=== PATIENT | female | born 1965 | race African-American/Black ===

== ENCOUNTER 2021-04-08 14:38 | Inpatient (IN) | payer BC, SELFPAY ==
[2021-04-08] VITALS (15 sets, daily range): BP systolic 108–151; BP diastolic 58–89; PULSE 70–91; RESP 16–26; TEMP 36.2–36.9; O2SAT 99–100; BMI 24.2
--- NOTE | 2021-04-08 15:35 | PM.IMHP ---
H&P: HPI History of Present Illness Date/Time: 04/08/21 15:35 Chief Complaint: chest pain Narrative: this is a 56-year-old woman I am seeing in the emergency room in the setting of acute inferior ST-elevation DE. She is unknown to me prior to this encounter and was declared in the field to have an inferior STEMI. She was at home and indicated about an hour prior to coming in the hospital she noticed the onset of central pressure-like chest pain it was unassociated with any other symptoms. It did not have any radiation any other location in the body. The symptom was a obviously concerning to her and her family and so 911 was called. EMS in the field performed an ECG that is diagnostic of acute inferior current of injury. She says she has no previous cardiac history. She says that she is diabetic and hypertensive and dyslipidemic. She receives his care from a PCP in [facility]. Review of Systems Review of Systems: ROS unobtainable: Yes unobtainable due to medical condition Meds Home Medications and Allergies Allergies Allergy/AdvReac Type Severity Reaction Status Date / Time Sulfa (Sulfonamide Allergy Severe Hives / Verified 11/05/18 19:52 Antibiotics) Red Face Penicillins Allergy Intermediate Hives / Verified 11/05/18 19:52 Red Face Exam Const: General: in distress and uncomfortable Other: Tall pleasant female moderate distress with chest pain HENMT: Mouth: Yes dry mucous membranes Eyes: Sclera: sclerae normal Pupils: Equal, round and reactive pupils present Neck: Neck: supple and no JVD Thyroid: thyroid normal Other: the carotid pulses are normal bilaterally there are no audible Resp: Effort & Inspection: normal respiratory effort Auscultation: clear to auscultation bilaterally Cardio: Rate: regular rate Rhythm: regular rhythm Other: S4 is evident there is no murmur GI: GI Palp: Yes Soft to palpation Auscultation: normal bowel sounds Skin: General skin exam: normal color Neuro: Cognition (Neuro): normal cognition Extrem: General: normal to inspection Assessment and Plan Additional Plan 56-year-old lady with background of diabetes hypertension and dyslipidemia details of the care she is receiving are unknown to me. She presents with chest pain and acute inferior wall DE by ECG. She has been brought immediately to the cardiac catheterization lab for angiography and revascularization. Shant Tucker MD [facility]
--- NOTE | 2021-04-08 15:38 | WPDCARDPROC ---
Cardiac Cath Procedure Note Date of procedure:: 04/08/21 Performing physician:: Shant Tucker MD Indication:: inferior ST-elevation ME Brief clinical history:: this is a 56-year-old lady with diabetes hypertension and dyslipidemia. She also smokes. She began to experience retrosternal heavy chest pain about an hour before coming in the hospital by ambulance ECG in the field was compatible with an acute inferior wall infarction. Procedure Procedure performed:: Emergency coronary angiography left ventriculography emergency PCI(MICHAEL) to the mid RCA Sedation/Medication given:: no sedation case start time 2:54 p.m. case end time 3:18 p.m. sedation provided by Vinita Wagoner RN , trained observer Access site:: right femoral artery Estimated blood loss:: 20-30 cc Procedure note:: patient was brought immediately from the ER to the cardiac catheterization lab where she was placed on the procedure table. She then had to be disrobed and the femoral triangles were prepared and draped in the usual sterile fashion. Following this I used 1% lidocaine to provide local anesthesia in the right femoral triangle. Using modified Seldinger technique the femoral artery was punctured and a 6 [place] vascular sheath was placed. After this left coronary angiography was performed using a 5 [place] FL4 catheter. After this I engaged the right coronary artery using a 6 [place] JR4 guiding catheter. Following this emergency PCI of right coronary artery was recommended carried out. Prior to PCI the patient received 180 mg of oral Brilinta and she was anticoagulated with bolus and infusion of Angiomax. She received aspirin in the field and did not receive any additional aspirin and the laborer egg producing farm. Following PCI the guiding catheter was removed a 5 [place] pigtail catheter was used to engage the left left ventricle measure LV hemodynamics and inject the left ventriculogram in the SALINAS projection. Procedure was then terminated the sheath was sutured into position she was taken to the ICU for post ME PCI recovery in good condition. There were no procedural complications and she left the laborer egg producing farm with no evidence of a groin hematoma. Findings:: Hemodynamics: Central aortic pressure is 162 over 70 left ventricle 162% end-diastolic pressure is 18 there is no gradient on pullback across the aortic valve. Left ventricle: The LV is normal in size the posterior basal segment is dyskinetic the remainder of the LV is normal and contracts well the global ejection fraction is 60%. The left main coronary artery is nicely patent the LAD is a large caliber vessel extending down to around the apex the LAD has minimal luminal irregularities no significant disease is identified. Circumflex is a medium caliber artery giving rise to the marginal branches and a posterior branch. The circumflex is angiographically free of significant disease. Right coronary artery is dominant to the posterior circulation it is 100% occluded the proximal to midportion. Intervention: Following angiography I used a 0.014 BMW coronary guidewire to probe the occluded segment of the RCA advance the guidewire into the distal portion of the artery. The guidewire did restore KRISTOPHER 1 flow into the vessel without any balloon dilatation. A subtotal lesion could then be seen in the proximal to mid segment of the artery. This was pre-dilated using a 2.5 x 20 mm emerge PTCA balloon. Following this I used the same balloon to advance into the distal 3rd portion of the artery there is some embolization of thrombus into the 3rd portion of the vessel a low-pressure 3 atmosphere inflation resolve this. This balloon was then withdrawn I then elected to deploy a 3.5 x 26 mm Orsiro drug-eluting stent in the entire area where the original target lesion was located and this was deployed at 10 atmospheres with an excellent angiographic result. After the stent was deployed the vessel was widely patent with no e
--- NOTE | 2021-04-08 16:27 | ADMGEN ---
This patient, Mirella Traylor, was admitted to Intensive Care Unit-4. Patient/family oriented to hospital policies and general routines including ID bracelet, bed and alarms, visiting hours, pain management, procedures, bathroom and other care routines, personal items, smoking policy, room service/diet, and visiting hours. Information on how to activate the Rapid Response Team has been discussed. Patient/Family are encouraged to report perceived risks to care and to ask questions if they do not understand what they are told or what they should do.
[2021-04-08 16:30] LABS: Glucose Point of Care > 500 mg/dl (65-105)
[2021-04-08 16:35] LABS: Hematocrit 43.5 % (37.0-47.0); Hemoglobin 14.1 g/dL (12.0-15.0); Immature Platelet Fraction Pct 24.5 % (0.9-11.2); Mean Corpuscular HGB Conc 32.4 g/dl (32-36); Mean Corpuscular Hemoglobin 25.5 pg (26-34); Mean Corpuscular Volume 78.5 fl (80-100); Platelet Count Result 135 k/mm3 (150-375); Red Blood Count 5.54 M/mm3 (4.2-5.4); Red Cell Distribution Width 14.1 % (11.5-14.5); White Blood Count 5.6 K/mm3 (4.5-10.0)
[2021-04-08 16:49] LABS: Cholesterol 225 mg/dL (0-200); HDL Direct 55 mg/dL; Triglycerides 166 mg/dL (<150)
--- NOTE | 2021-04-08 16:49 | PC.NURSE ---
Cardiopulmonary Rehab Services flyer was given to patient.
[2021-04-08 16:57] LABS: Anion Gap 8 mmol/L (8-16); Blood Urea Nitrogen 7 mg/dL (7-17); Calcium 9.7 mg/dL (8.4-10.2); Carbon Dioxide 24 mmol/L (22-30); Chloride 101 mmol/L (98-107); Estimated CRCL calculation 119 ml/min; Estimated Glomerular Filt Rate > 60; Glucose 522 mg/dL (65-110); INR 3.9; Potassium 4.4 mmol/L (3.4-5.0); Prothrombin Time 36.9 Seconds (11.1-14.7); Sodium 133 mmol/L (137-145)
[2021-04-08 17:00] LABS: LDL Cholesterol Direct 117 mg/dL
[2021-04-08 17:11] LABS: Troponin I 0.258 ng/mL (0.000-0.034)
[2021-04-08] MEDS: INSULIN ASPART (*BKC) 100 UNITS/ML 15 UNITS SUB-Q (17:18)
[2021-04-08] MEDS: SODIUM CHLORIDE 0.9% IV 1,000 ML 125 ML IV CONT (17:19)
[2021-04-08] MEDS: METOPROLOL TARTRATE 25 MG TABLET PO (17:20)
[2021-04-08 22:14] LABS: Glucose Point of Care 245 mg/dl (65-105)
[2021-04-09] VITALS (12 sets, daily range): BP systolic 102–128; BP diastolic 56–74; PULSE 66–92; RESP 16–20; TEMP 36.2–36.8; O2SAT 100
[2021-04-09] MEDS: TICAGRELOR 90 MG TABLET PO ×3 (01:00→21:41)
--- NOTE | 2021-04-09 05:11 | ECG_ITS ---
Measurements Intervals [place] Rate: 62 P: 77 W[place]: 168 QRS: -4 QRSD: 89 T: -37 QT: 401 QTc: 408 Interpretive Statements SINUS RHYTHM BORDERLINE R WAVE PROGRESSION, ANTERIOR LEADS INFERIOR INFARCT, PROBABLY RECENT ABNORMAL ECG Electronically Signed On 04-09-2021 12:22:20 CDT by Eris Alves D.O.
[2021-04-09 09:10] LABS: Glucose Point of Care 310 mg/dl (65-105)
[2021-04-09] MEDS: lisinopriL 5 MG TABLET PO (09:13)
[2021-04-09] MEDS: METOPROLOL SUCCINATE EXT REL 50 MG TABCR PO (09:13)
[2021-04-09] MEDS: INSULIN ASPART (*BKC) 100 UNITS/ML SUB-Q ×3 (09:13→18:10)
[2021-04-09] MEDS: INSULIN GLARGINE (*BKC) 100 UNITS/ML SUB-Q (11:04)
--- NOTE | 2021-04-09 11:49 | WPDCNINT ---
Assessment and Plan Assessment and plan (1) ST elevation myocardial infarction (STEMI) of inferior wall: Code(s): I21.19 - ST elevation (STEMI) myocardial infarction involving other coronary artery of inferior wall Status: Acute Assessment and Plan: Patient presented with pressure-like chest pain, along with diaphoresis and shortness of breath. Initial EKG showed acute inferior myocardial injury pattern, patient was taken immediately to cardiac slab inspector for the ER, 100% occlusion of the RCA status post MICHAEL x1 to the RCA. No coronary disease seen in the left main coronary artery -cardiology is following the patient, -continue aspirin, lisinopril, metoprolol, Brilinta, rosuvastatin (2) Diabetes: Code(s): E11.9 - Type 2 diabetes mellitus without complications Status: Acute Assessment and Plan: Patient does have a history of diabetes, is on insulin at home, states she has not been taking insulin and may have to go back on it -hemoglobin A1c has been sent out, likely it is elevated -dietitian consult -defense travel administrator also was consulted (3) Tobacco use: Code(s): Z72.0 - Tobacco use Status: Acute Assessment and Plan: Patient smokes half to 1 packet per day -consult patient on cessation of tobacco use, she stated that she has quit after her myocardial infarction Additional Plan Discussed with patient updated with her condition and plan of care. I did emphasize shortness of continue her insulin at home Code status: Full code care time spent: 39 minute This dictation may have been done utilizing a voice recognition system. Attempts have been made to correct errors. However, there may be uncorrected grammatical, spelling, and recognition errors present. Due to a high probability of clinically significant, life threatening deterioration, the patient required my highest level of preparedness to intervene emergently and I personally spent this critical care time directly and personally managing the patient. This critical care time included obtaining a history; examining the patient; pulse oximetry; ordering and review of studies; arranging urgent treatment with development of a management plan; evaluation of patient's response to treatment; frequent reassessment; and discussions with other providers. It was exclusive of separately billable procedures and treating other patients and teaching time. Please see Assessment and Plan section and the rest of the note for further information on patient assessment and treatment Component Technician Consult Note Consult date: 04/09/21 Time Seen: 07:16 Reason for consult: STEMI status post MICHAEL x1 to RCA HPI: Mirella Traylor is a 56 year old female past medical history of diabetes, tobacco use presented the ER with chest pain which started 1 hour prior to coming to the hospital. Patient stated it was a central chest pressure like chest pain, did not radiate to any other part of her body. It had complain of some diaphoresis and shortness of breath. She called 911 in the EKG initially was read acute inferior DE status post cardiac catheterization with MICHAEL x1 to RCA. Patient's transfer the ICU for further management Patient seen and examined the ICU this morning from denies any chest pain, shortness of breath abdominal pain, nausea vomiting. Patient blood pressure on arrival to the ICU last evening was 500, treated with subcu insulin. Patient states that she has a history of diabetes which UO been taking her insulin. She also smokes half to 1 packet per day which she says she has quit now. Denies any alcohol or recreational drug use. Review of Systems Review of Systems: All systems reviewed & are unremarkable except as noted in HPI and below [facility] Family History Family History (Updated 04/08/21 @ 16:38 by Dayanna Flor RN) Other Unknown family medical history Social History Social History Smoking packs per day: 0.5 Smoking cigarettes per day: 1
[2021-04-09] MEDS: ROSUVASTATIN 10 MG TABLET 20 MG PO (12:14)
--- NOTE | 2021-04-09 12:15 | ECHO_ITS ---
Patient Info Name: Mirella Traylor Age: 56 years : 1965 Gender: Female Ht: 72 in Wt: 178 lbs BSA: 2.03 m2 HR: 71 bpm BP: 120 / 74 mmHg Heart Rhythm: Sinus Rhythm Technical Quality: Fair Exam Date: 04/09/2021 1:56 PM Exam Location: [facility] Patient Status: Inpatient Admit Date: 04/08/2021 Staff Ordering Physician: Stevie Bruno MD Sign Carpenter: Dee Knight RDCS Attending Provider: Shant Tucker MD Referring Physician: Damion MOON; Exam Type: CA echo doppler color flow Study Info Indications - S/P STEMI INFERIOR Complete two-dimensional, color flow and Doppler transthoracic echocardiogram is performed. Summary 1. Complete two-dimensional, color flow and Doppler transthoracic echocardiogram is performed. 2. Technically difficult study. Regional wall motion assessment limited due to poor endomyocardial border definition in several views. 3. Left ventricular systolic function is normal, estimated at 55-60% with mild hypokinesis of the basal inferolateral wall. 4. The left ventricular diastolic function is grade I diastolic dysfunction. 5. There is trace tricuspid valve regurgitation. 6. No pulmonary hypertension, estimated pulmonary arterial systolic pressure is 23 mmHg. Left Ventricle Left ventricular chamber dimension is normal. Left ventricular systolic function is normal, estimated at 55-60% with mild hypokinesis of the basal inferolateral wall. There is no increased left ventricular wall thickness. The left ventricular diastolic function is grade I diastolic dysfunction. Technically difficult study. Regional wall motion assessment limited due to poor endomyocardial border definition in several views. Right Ventricle Right ventricular chamber dimension is normal. Right ventricular systolic function is normal. Left Atria Left atrial chamber dimension is normal. Right Atria Right atrial chamber dimension is normal. Aortic Valve The aortic valve is not well visualized. There is no aortic valve stenosis. There is no aortic valve regurgitation. Pulmonic Valve The pulmonic valve is not well visualized. Mitral Valve The mitral valve has thickened leaflets. There is trace mitral valve regurgitation. The mitral valve annulus is mildly calcified. Tricuspid Valve The tricuspid valve leaflets are normal. There is trace tricuspid valve regurgitation. No pulmonary hypertension, estimated pulmonary arterial systolic pressure is 23 mmHg. Pericardium/Pleural The pericardium appears normal. There is small pericardial effusion. Inferior Vena Cava Normal inferior vena cava with >50% collapse upon inspiration consistent with normal right atrial pressure, 5 mmHg. Aorta The aortic root size at the sinus of Valsalva is normal. There is mild aortic atherosclerosis. Left Ventricular Outflow Tract Name Value Normal LVOT 2D LVOT Diameter 2.0 cm LVOT Doppler LVOT Peak Gradient 5 mmHg LVOT Mean Gradient 2 mmHg LVOT VTI 19 cm LVOT VTI/AV VTI Ratio 0
[2021-04-09 12:20] LABS: Glucose Point of Care 350 mg/dl (65-105)
--- NOTE | 2021-04-09 13:22 | PM.PNCARD ---
Progress Note: A&P Assessment and Plan (1) ST elevation myocardial infarction (STEMI) of inferior wall: Code(s): I21.19 - ST elevation (STEMI) myocardial infarction involving other coronary artery of inferior wall Status: Acute Assessment and Plan: Continue dual antiplatelet therapy without interruption for minimum of 12 months with Brilinta 90 mg twice daily. Explained the marked importance of compliance and risk for myocardial infarction, and/or complications if not. Monitor for bleeding. Discussed potential side effects including shortness of breath with Brilinta and to report if concern. Reviewed all medications in the utility including rosuvastatin, Toprol XL, lisinopril. Discussed importance of control diabetes mellitus, blood pressure, lifestyle /diet, smoking cessation to reduce cardiovascular risk and recurrent events in the future. All questions answered to their satisfaction. Also discussed importance and recommendation for cardiac rehabilitation as an outpatient within 1 month after discharge. 2D echocardiogram. Continue telemetry. Transfer to step-down on telemetry today. Patient able to ambulate with caution later today. If no issues discharged after 48 hours tomorrow afternoon. (2) Hypertension: Code(s): I10 - Essential (primary) hypertension Status: Acute Assessment and Plan: Reasonably controlled. Continue medical therapy at this time. (3) Diabetes: Code(s): E11.9 - Type 2 diabetes mellitus without complications Status: Acute Assessment and Plan: Continue current therapy. (4) Tobacco use: Code(s): Z72.0 - Tobacco use Status: Acute Assessment and Plan: Smoking cessation counseling performed at length. Patient states she has done smoking as of yesterday. Any additional smoking cessation aids as she requires. Stressed this at length. Subjective Date/time seen: date of service:04/09/21 13:22 Follow-up status post inferior STEMI 3.5x26mm Orsiro MICHAEL to mid RCA 04/08/21 no new issues overnight. No ventricular arrhythmias on telemetry. Patient denies chest pain, shortness of breath, dizziness, palpitations. No pain at right femoral arterial access site. No lower extremity edema. Patient eating well without nausea vomiting. Daughter at bedside in the room. All questions answered to their satisfaction. Review of Systems Review of Systems: All systems reviewed & are unremarkable except as noted in HPI and below Constitutional: Constitutional: Reports as per HPI and Reports no additional constitutional complaints Eyes: Eyes: Reports as per HPI and Reports no additional eye complaints ENT: Reports system reviewed and no additional complaints, except as documented and Reports as per HPI Cardiovascular: Cardiovascular: Reports as per HPI and Reports no additional cardiovascular complaints Respiratory: Respiratory: Reports as per HPI and Reports no additional respiratory complaints Gastrointestinal: Gastrointestinal: Reports as per HPI and Reports no additional gastrointestinal complaints Genitourinary: Genitourinary: Reports no additional female genitourinary complaints and Reports as per HPI Musculoskeletal: Musculoskeletal: Reports no additional musculoskeletal complaints and Reports as per HPI Integumentary/Breasts: Skin/Breast: Reports system reviewed and no additional complaints, except as docu and Reports as per HPI Neurologic: Reports system reviewed and no additional complaints, except as documented and Reports as per HPI Psychiatric: Psychiatric: Reports no additional psychiatric complaints and Reports as per HPI Endocrine: Endocrine: Reports no additional endocrine complaints and Reports as per HPI Hematologic/Lymphatic: Hematologic/Lymphatic: Reports no additional hematologic/lymphatic complaints and Reports as per HPI Allergic/Immunologic: Allergic/Immunologic: Reports no additional allergic/immunolog
--- NOTE | 2021-04-09 17:00 | WPDCN ---
Assessment and Plan Assessment and plan (1) ST elevation myocardial infarction (STEMI) of inferior wall: Code(s): I21.19 - ST elevation (STEMI) myocardial infarction involving other coronary artery of inferior wall Status: Acute Assessment and Plan: Status post drug-eluting stent to the RCA per Dr. Tucker. Patient on dual anti-platelet therapy, statin, and beta-shefali. (2) Type 2 diabetes mellitus with hyperglycemia: Code(s): E11.65 - Type 2 diabetes mellitus with hyperglycemia Status: Acute Assessment and Plan: Poorly controlled with a random glucose on arrival of greater than 500. A1c still pending as test had to be sent out, presumably due to such a high reading. Start Lantus. Patient would benefit from Jardiance or another SGLT 2 inhibitor but would likely need prior authorization from her insurance company. Patient to meet with the dietitian and nurse educator. (3) Hypertension: Code(s): I10 - Essential (primary) hypertension Status: Acute Assessment and Plan: Blood pressures were bit elevated on arrival to the emergency department but have improved as she has been consistently getting antihypertensives. (4) Dyslipidemia: Code(s): E78.5 - Hyperlipidemia, unspecified Status: Acute Assessment and Plan: Fasting lipids noted. Patient has been started on rosuvastatin. Check LFTs in the morning. (5) Tobacco use: Code(s): Z72.0 - Tobacco use Status: Acute Assessment and Plan: Smoking cessation is imperative and was discussed with the patient. Additional Plan Thank you for allowing us to participate in this patient's care. Please do not hesitate to contact us with any questions. Supervising physician for this medical consultation is Dr. Joseph Sheth. HPI Data of Consult Date/Time: 04/09/21 17:00 Requesting Physician: Shant Tucker MD Primary Care Provider: Adonay Johansen, Consult Narrative Narrative: This is a 56-year-old female who presented to the emergency department yesterday afternoon via EMS from home with chest pain. STEMI was called in the field and she was taken directly to the biological lab technician where she was found to have a 100% occlusion of the proximal to midportion of the RCA which was successfully stented with a drug-eluting stent per Dr. Tucker. She has felt pretty good since that time and she was downgraded to the medical floor today. The hospitalist service has been consulted due to ongoing issues with hyperglycemia. The patient was diagnosed with diabetes about 7 years ago and is on Lantus although she admits that she does not take it as prescribed as she believes it causes her to have an upset stomach quite frequently. Her hemoglobin A1c was unable to be done at this facility as it was too high for analyzer to read thus I think she has been poorly controlled for quite some time. She was also taking metformin previously but that caused a lot of stomach issues as well. She does not check her glucose at home. She has not had any blurry vision, polydipsia, or polyuria despite her glucose being over 500 this morning. Review of Systems Review of Systems: Twelve systems were reviewed. No fever, chills, or sweats. No recent cold or flu symptoms. She is not having any chest pain or shortness of breath at this time. No orthopnea, PND, or lower extremity edema. Denies claudication. No nonhealing wounds or issues with yeast infections. She has no history of pancreatitis. No nausea, vomiting, diarrhea, or dysuria. Except as documented, all other systems were reviewed and are negative. [facility] Past Medical History Medical History (Updated 04/09/21 @ 18:19 by Virginia Gutierres PA-C) Coronary artery disease Inferior ST-elevation myocardial infarction on 04/08/2021. Dyslipidemia Hypertension Type 2
--- NOTE | 2021-04-09 17:19 | PC.NURSE ---
PATIENT TRANSFERRED TO ROOM 244 PER WHEELCHAIR. REPORT GIVEN TO JOHN FRAUSTO. ALL QUESTIONS ANSWERED.
[2021-04-09] MEDS: ASPIRIN 81 MG ENTERIC TABLET PO (18:11)
--- NOTE | 2021-04-09 18:14 | ADMGEN ---
This patient, Mirella Traylor, was admitted to 2 Medical Room 244-. Patient/family oriented to hospital policies and general routines including ID bracelet, bed and alarms, visiting hours, pain management, procedures, bathroom and other care routines, personal items, smoking policy, room service/diet, and visiting hours. Information on how to activate the Rapid Response Team has been discussed. Patient/Family are encouraged to report perceived risks to care and to ask questions if they do not understand what they are told or what they should do.
[2021-04-09 18:16] LABS: Glucose Point of Care 380 mg/dl (65-105)
[2021-04-09] MEDS: INSULIN GLARGINE (*BKC) 100 UNITS/ML 15 UNITS SUB-Q (21:46)
[2021-04-09 22:30] LABS: Glucose Point of Care 361 mg/dl (65-105)
[2021-04-10] VITALS: PULSE 72
[2021-04-10 04:00] VITALS: PULSE 66
[2021-04-10 06:15] LABS: Alanine Aminotransferase 16 U/L (4-35); Albumin Level 3.4 g/dL (3.5-5.1); Alkaline Phosphatase 85 U/L (38-126); Anion Gap 4 mmol/L (8-16); Aspartate Amino Transferase 23 U/L (14-36); Bilirubin,Total 0.4 mg/dL (0.2-1.3); Blood Urea Nitrogen 7 mg/dL (7-17); Calcium 9.5 mg/dL (8.4-10.2); Carbon Dioxide 25 mmol/L (22-30); Chloride 106 mmol/L (98-107); Estimated CRCL calculation 119 ml/min; Estimated Glomerular Filt Rate > 60; Glucose 288 mg/dL (65-110); Magnesium 1.6 mg/dL (1.6-2.3); Potassium 3.8 mmol/L (3.4-5.0); Sodium 135 mmol/L (137-145)
[2021-04-10 07:36] VITALS: BP 129/69; PULSE 65; RESP 16; TEMP 36.4; O2SAT 100
[2021-04-10 08:00] VITALS: PULSE 82
[2021-04-10 08:20] LABS: Glucose Point of Care 290 mg/dl (65-105)
[2021-04-10] MEDS: TICAGRELOR 90 MG TABLET PO (08:22)
[2021-04-10] MEDS: ROSUVASTATIN 10 MG TABLET 20 MG PO (08:22)
[2021-04-10 08:23] VITALS: PULSE 64
[2021-04-10] MEDS: METOPROLOL SUCCINATE EXT REL 50 MG TABCR PO (08:23)
[2021-04-10] MEDS: lisinopriL 5 MG TABLET PO (08:23)
[2021-04-10] MEDS: ASPIRIN 81 MG ENTERIC TABLET PO (08:24)
[2021-04-10] MEDS: INSULIN ASPART (*BKC) 100 UNITS/ML SUB-Q ×2 (08:30→11:55)
[2021-04-10 08:40] LABS: Glucose Point of Care 334 mg/dl (65-105)
[2021-04-10 11:19] LABS: Reference Lab Test Name HGB A1C
[2021-04-10 11:20] LABS: Reference Lab Test Result >14.0
[2021-04-10 11:53] LABS: Glucose Point of Care 265 mg/dl (65-105)
[2021-04-10 12:00] VITALS: PULSE 80
[2021-04-10 12:55] VITALS: BMI 24.2
--- NOTE | 2021-04-10 13:53 | PM.IMPN ---
Progress Note: A&P Assessment and Plan (1) ST elevation myocardial infarction (STEMI) of inferior wall: Code(s): I21.19 - ST elevation (STEMI) myocardial infarction involving other coronary artery of inferior wall Status: Acute Assessment and Plan: Status post drug-eluting stent to the RCA per Dr. Tucker. - continue on dual anti-platelet therapy, statin, and beta-shefali. (2) Type 2 diabetes mellitus with hyperglycemia: Code(s): E11.65 - Type 2 diabetes mellitus with hyperglycemia Status: Acute Assessment and Plan: last glucose 265 but down from 522 - patient used to be on metformin but this gave her diarrhea. She also used to be on short-acting insulin which she claims upset her stomach and she will not go forward with that - planned to do Jardiance daily with Lantus 20 units. This will need to be adjusted by her primary care physician periodically - A1c pending, the past it has been up to 14 - the diabetic educator has been consulted and discussed this with the patient. (3) Hypertension: Code(s): I10 - Essential (primary) hypertension Status: Acute Assessment and Plan: bp 129/69 -continue with Metoprolol and lisinopril (4) Dyslipidemia: Code(s): E78.5 - Hyperlipidemia, unspecified Status: Acute Assessment and Plan: Fasting lipids noted. Patient has been started on rosuvastatin. Check LFTs in the morning. (5) Tobacco use: Code(s): Z72.0 - Tobacco use Status: Acute Assessment and Plan: Smoking cessation is imperative and was discussed with the patient. Additional Plan Thank you for allowing us to participate in this patient's care. Please do not hesitate to contact us with any questions. Time Spent With Patient Time with patient: 25 - 35 minutes Subjective Date/time seen: 04/10/21 13:53 Interval history: Pt is a 56-year-old female here for AL and uncontrolled diabetes. Patient was seen today and states she feels okay. She denies chest pain, jaw pain or arm pain at this time. She is eating and drinking well. No nausea, vomiting, diarrhea or constipation. No swelling her lower extremities. she has some slight dyspnea on exertion but has not really been up and about too much. No complaints of weakness. We had a long discussion about diabetes and I answered her questions. I explained to her that if she does not get her diabetes under control she will continue to have heart issues and may develop kidney failure as well. She said that metformin causes her to have diarrhea but she will try the Jardiance and the Lantus. She has glucometer and supplies at home and does not need any further supplies. Review of Systems Review of Systems: All systems reviewed & are unremarkable except as noted in HPI and below Exam Narrative: General: Well developed well nourished patient in NAD HEENT: normocephalic Neck: supple Neuro: Alert and oriented x4 CV:RRR . Telemetry shows sinus bradycardia rate of 60. No telemetry reviews Resp:CTA Abd: Soft, non distended. No pain to palpation. Positive bowel sounds Extremities: No swelling, erythema, or pain to palpation. Objective Data Vital Signs Vital Signs: Vital Signs - 24 hr 04/09/21 14:00 04/09/21 20:00 04/09/21 21:48 Temperature 97.2 F L Pulse Rate 67 80 92 Respiratory Rate 18 Blood Pressure 128/68 Pulse Oximetry 100 04/10/21 00:00 04/10/21 04:00 04/10/21 07:36 Temperature 97.6 F Pulse Rate 72 66 65 Respiratory Rate 16 Blood Pressure 129/69 Pulse Oximetry 100 04/10/21 08:00 04/10/21 08:23 04/10/21 12:00 Temperature Pulse Rate 82 64 80 Respiratory Rate Blood Pressure Pulse Oximetry Intake/Output Intake/Output: Intake & Output 04/07/21 04/08/21 04/09/21 04/10/21 23:59 23:59 23:59 23:59 Intake Total 240 1360 1280 Output Total 1450 450 Balance -8741 264 8982 Meds/Results Medi
--- NOTE | 2021-04-10 14:19 | PM.DS ---
DS: Admitting Diagnosis Admitting Diagnosis Chest pain DS: Discharge Diagnosis Discharge Diagnosis (1) ST elevation myocardial infarction (STEMI) of inferior wall: Code(s): I21.19 - ST elevation (STEMI) myocardial infarction involving other coronary artery of inferior wall Status: Acute Assessment and Plan: Presented with acute inferior MO. She was found to have 100% occlusion of he RCA which was stented. - Continue dual antiplatelet therapy without interruption for minimum of 12 months with Brilinta 90 mg twice daily. - Continue statin, lisinopril, metoprolol - Will follow-up as an outpatient in 2-4 weeks. - Echocardiogram from yesterday reviewed. Normal systolic function, no significant valvular abnormalities, technically difficult study- difficult to assess any regional wall motion abnormalities. (2) Hypertension: Code(s): I10 - Essential (primary) hypertension Status: Acute Assessment and Plan: Reasonably controlled. Continue medical therapy at this time. (3) Diabetes: Code(s): E11.9 - Type 2 diabetes mellitus without complications Status: Acute Assessment and Plan: Hospitalist was consulted to manage her blood sugars before discharge. She also met with the family life educator today. Her PCP will manage her diabetes as an outpatient. Continue current therapy. (4) Tobacco use: Code(s): Z72.0 - Tobacco use Status: Acute Assessment and Plan: Patient states that she has decided to quit smoking. I congratulated her on this. I stressed the importance of abstinence from tobacco products for ongoing cardiovascular risk reduction. DS: Summary Hospital Course Reason for hospitalization: Chest pain Hospital Course: Presented emergently to hospital via EMS who responded to a call for complaints of chest pain. She was having central chest pressure while at home for several hours. She did not have any associated symptoms. EKG was done in the field that revealed ST elevation in the inferior leads. When she arrived to the emergency department she was taken emergently to the [facility] for coronary angiography. her angiogram revealed a 100% occlusion of her RCA. This lesion was stented and taoism of flow was achieved. She did not have any periprocedural or postprocedural complications. She recovered as expected. Today, she is stable and not experiencing any chest pain, shortness of breath. No arrhythmias on telemetry. She has been initiated on appropriate medical therapy including dual anti-platelet therapy, statin, Macario, beta-shefali. She will be discharged home today. Time spent discussing smoking cessation with patient: 3 to 10 minutes Status at Discharge Functional status at discharge: independent ambulation Time Spent with Patient Time spent: Greater than 30 minutes Exam Const: General: comfortable and no acute distress Other: HENMT: Head: normal to inspection Eyes: General: appearance normal, both eyes and all related structures Sclera: sclerae normal Pupils: Equal, round and reactive pupils present Neck: Neck: supple and no JVD Other: Resp: Effort & Inspection: normal respiratory effort Auscultation: clear to auscultation bilaterally Cardio: Rate: regular rate Rhythm: regular rhythm Heart sounds: no murmurs GI: GI Palp: Yes Soft to palpation Auscultation: normal bowel sounds Skin: General skin exam: normal color Other: Right groin left heart catheterization site free from bleeding, swelling, hematoma. Neuro: Cranial nerves: Yes Equal, round and reactive pupils present Cognition (Neuro): normal cognition Extrem: General: normal to inspection, no edema and no pedal edema Psych: Mental Status: mental status grossly normal Affect: normal affect DS: Data Data Completed and Pending Labs on day of discharge: Labs from last 24 hours 04/10/21 04/10/21 04/10/21 11:50 08:30 07:36 Sodium Potassium
== END 2021-04-10 16:18 | disposition home or self-care (01) | DRG 247 ==
LOC: ANHED 14:43 → ANHCATHLAB 14:46 → ANHICU 16:13 → ANH2MED 04-10 07:17 → ANHICU 04-12 12:43
PROVIDERS: Internal Medicine; Physician Assistant; Admitting Provider Specialist; PCP Family Medicine; Visit Provider Internal Medicine Cardiovascular Disease
PROC: 4A023N7 Measurement of Cardiac Sampling and Pressure, Left Heart, Percutaneous Approach (ICD-10-PCS; CPT 93452; principal; 2021-04-08 14:55)
PROC: 027034Z Dilation of Coronary Artery, One Artery with Drug-eluting Intraluminal Device, Percutaneous Approach (ICD-10-PCS; 2021-04-08 14:55)
DX: I21.19 ST elevation (STEMI) myocardial infarction involving other coronary artery of inferior wall (principal); I25.10 Atherosclerotic heart disease of native coronary artery without angina pectoris; E11.65 Type 2 diabetes mellitus with hyperglycemia; I10 Essential (primary) hypertension; E78.5 Hyperlipidemia, unspecified; F17.210 Nicotine dependence, cigarettes, uncomplicated
CPT/HCPCS: 36415; 80048; 80053; 80061; 82948; 83036; 83735; 84443; 84484; 85027; 85055; 85610; 93005; 93306; 93458; A9270; C1725; C1769; C1874; C1887; C1894; C9606; J0583; J1644; J1815; J7030; J7040

== ENCOUNTER 2021-06-17 16:30 | Outpatient (RCR) | payer BC, SELFPAY ==
[2021-05-21 11:29] VITALS: BP 150/90; PULSE 72; RESP 16; O2SAT 99
[2021-05-21 11:51] VITALS: PULSE 72
--- NOTE | 2021-06-19 13:55 | PCCPR ---
Absent-called in stating she was having terrible burning pain in her feet from her neuropathy.
--- NOTE | 2021-06-20 14:06 | PCCPR ---
Absent today, not feeling well.
--- NOTE | 2021-06-24 15:37 | PCCPR ---
Absent-called in stating her neuropathy is still bothering her. She states she will be absent all week. Pt says she has an MD appt Thursday.
--- NOTE | 2021-07-01 15:29 | PCCPR ---
Mirella called today and said that her foot was still numb and continues to have pain in her legs. She would like to wait until after she sees her neurologist on 07/08 to return to rehab.
--- NOTE | 2021-07-10 14:31 | PCCPR ---
Followed up with Mirella today. She saw the neurologist and he confirmed that she does have neuropathy and would like to run additional tests. Mirella would like to wait until after tests are completed to return. Mirella placed on hold and will follow up in one month.
--- NOTE | 2021-08-29 11:36 | PCCPR ---
Called Mirella to follow up and inquire about her return. She did not answer phone, left message asking she call back and let us know if she would like to discharge or return to cardiac rehab.
--- NOTE | 2021-08-30 10:54 | PCCPR ---
Addendum entered by Liz Leonard RN 09/10/21 11:18: Spoke with Mirella states her pain is worse at night. She is being referred to another neurologist specialist. States she doubts she will be able to return in the near future so asked for us to dc her for now. Note faxed to her referring MD. Original Note: pt returned call and spoke to Jeanne; states will call when she's ready to return, has neurologist OV next week
== END 2021-09-16 08:52 | disposition home or self-care (01) ==
LOC: ANHCPREHAB 16:30
PROVIDERS: PCP Internal Medicine; Visit Provider Nurse Practitioner
DX: Z95.5 Presence of coronary angioplasty implant and graft (principal)
CPT/HCPCS: 93798

== ENCOUNTER 2024-09-10 12:57 | Emergency (ER) | payer OTHER, BC, SELFPAY ==
--- NOTE | 2024-09-10 13:04 | PC.NURSE ---
PT DECIDED TO LEAVE AND GO TO A QUICK CARE AMBULATORY FROM THE ED WITH A STEADY GAIT. APPEARS IN NO ACUTE DISTRESS
== END 2024-09-10 14:09 | disposition left against medical advice (07) ==
PROVIDERS: PCP Internal Medicine
DX: Z53.21 Procedure and treatment not carried out due to patient leaving prior to being seen by health care provider (principal)
CPT/HCPCS: 99199

== ENCOUNTER 2024-09-10 14:48 | Emergency (ER) | payer OTHER, BC, SELFPAY ==
--- NOTE | ~2024-09-10 | CT_ITS ---
CT brain wo con Ordering provider: Coco Gilbert PA-C History: 59 years Female with . head injury . Comparison: None. Technique: CT of the head without contrast. Radiation reduction technique utilized. The dose-length product was 605.33 mGy-cm. FINDINGS: BRAIN PARENCHYMA AND CSF SPACES: No midline shift, mass effect or hemorrhage. The brain parenchyma a nd CSF spaces are otherwise normal. VISUALIZED PARANASAL SINUSES: Well aerated right maxillary sinus disease. MASTOIDS: Well aerated. BONES: The bones appear intact. SOFT TISSUES: Visualized nasopharynx is normal. Superficial soft tissues are normal. IMPRESSION: No acute intracranial findings. Reviewed, dictated and finalized at location A. R MANAGER
--- NOTE | ~2024-09-10 | CT_ITS ---
CT cervical spine wo con Ordering provider: Coco Gilbert PA-C History: . fall, neck pain . Comparison: None. Technique: CT of the cervical spine was performed without contrast. Sagittal and coronal reformatted images were also obtained and reviewed. Automated exposure control and iterative reconstruction temo hnique were employed. The dose-length product was 284.73 mGy-cm. FINDINGS: VERTEBRAE: No subluxation or acute fracture. The occipital condyles are intact. Prominent Kissing os teophytes are seen anteriorly. DISC SPACES: Normal. Multilevel uncovertebral joint osteoarthritic changes PARASPINOUS SOFT TISSUES: Bilateral carotid changes. Enlarged left lobe of the thyroid suggestive of Nodule. Ultrasound evaluation advised. IMPRESSION: No acute osseous abnormality cervical spine. Prominent kissing osteophytes seen anteriorly. Left lobe of the thyroid large nodule. Reviewed, dictated and finalized at location A. MERCHANDISER
--- NOTE | ~2024-09-10 | XR_ITS ---
XR shoulder RT min 2V Ordering provider: Coco Gilbert History: . right shoulder pain, fall . Comparison: None. FINDINGS: BONES: No acute fracture or dislocation. JOINT SPACES: The acromioclavicular joint osteoarthritic changes.. The glenohumeral joint is normal. SOFT TISSUES: Normal. IMPRESSION: No acute osseous abnormality right shoulder. Reviewed, dictated and finalized at location A. FORMULA WORKER
[2024-09-10 15:07] VITALS: BP 154/83; PULSE 99; RESP 20; TEMP 37; O2SAT 100
--- NOTE | 2024-09-10 17:53 | ED_ITS ---
HPI - Fall General Chief Complaint: Fall Stated Complaint: FALL ON ICE, BP ELEVATED Time Seen by Provider: 09/10/24 17:53 Focused HPI: This is a 59 year old female that presents to the ER for a fall today. Reports she slipped and fell in [employer] parking lot. She hit her head on the front of her car. She did not lose consciousness. Reports neck pain and right shoulder pain. She does not take anticoagulation. GENERAL: Well-appearing, well-nourished, and in no acute distress. HEAD: Normocephalic, atraumatic. CHEST: Clear to auscultation. ?No respiratory distress. HEART: Regular rate and rhythm.? NEURO: ?Alert and oriented x3. Patient screened in triage and initial orders placed.? ?Additional care and disposition to be based upon?diagnostic testing and treatment. Related Data Home Medications ?Medication ?Instructions ?Recorded ?Confirmed ?Last Taken ?Type omeprazole 20 mg capsule,delayed 20 mg PO DAILY 04/08/21 09/10/24 Unknown History release biotin 5,000 mcg disintegrating mcg PO 05/21/21 Unknown History tablet gabapentin 300 mg capsule 300 mg PO HS 05/21/21 09/10/24 Unknown History doxycycline hyclate 100 mg capsule 100 mg PO Q12H 09/10/24 09/10/24 Unknown History felodipine 5 mg tablet,extended 5 mg PO QAM 09/10/24 09/10/24 Unknown History release 24 hr insulin aspart U-100 100 unit/mL 1 sliding scale dose subcut 09/10/24 Unknown History (3 mL) subcutaneous pen (Novolog FlexPen U-100 Insulin aspart) lisinopril 40 mg tablet 40 mg PO .QD 09/10/24 09/10/24 Unknown History tramadol 50 mg tablet 50 mg PO Q8H PRN pain 09/10/24 09/10/24 Unknown History Allergies Allergy/AdvReac Type Severity Reaction Status Date / Time Sulfa (Sulfonamide Allergy Severe Hives / Verified 04/08/21 16:39 Antibiotics) Red Face Penicillins Allergy Intermediate Hives / Verified 04/08/21 16:39 Red Face Review of Systems Review of Systems: CONSTITUTIONAL: Denies fever GASTROINTESTINAL: Denies vomiting MUSCULOSKELETAL: Reports joint pain, and myalgia. NEUROLOGIC: Denies numbness, or weakness. All systems reviewed & are unremarkable except as noted in HPI and below PMFSH Past Medical History Medical History Type 2 diabetes mellitus Dyslipidemia Hypertension Coronary artery disease Inferior ST-elevation myocardial infarction on 04/08/2021. Surgical History Surgical History History of cardiac catheterization (04/08/21) Status post drug-eluting stent to the RCA. Family History Family History Father Hypertension Mother Hypertension Mother Diabetes mellitus Father Diabetes mellitus Daughter Diabetes mellitus Daughter Diabetes mellitus Father Prostate carcinoma Mother Prostate carcinoma Mother Breast cancer Other Unknown family medical history Social History Social History Social History: Surrogate decision maker: Ameena Carlisle, daughter. Code status: Full code. Smoking packs per day: 1 Smoking cigarettes per day: 20.0 Years smoked: 20 Smoking pack-years: 20.00 Smoking status: Former smoker Tobacco type: cigarettes Smoking end date: 08/31/19 Alcohol intake: never Substance use: never Additional living arrangements comments: The patient lives in [place]. 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 Exam Narrative: GENERAL: Well-appearing, well-nourished, and in no acute distress. HEAD: Normocephalic, atraumatic. EYES: PERRLA and EOMI. ENT: Nares clear, no rhinorrhea or epistaxis. Mucous membranes moist. Oropharynx without tonsillar hypertrophy exudate or other lesions. Bilateral TMs pearly santos non-bulging NECK: Supple. No adenopathy or masses. CHEST: Clear to auscultation. No respiratory distress. No wheezes rales or rhonchi HEART: Regular rate and rhythm. No murmur heard. Normal peripheral pulses. EXTREMITIES: Normal range of motion. No edema or obvious deformity. Strength equal in bilateral upper and lower extremities SKIN: Warm, dry, no rash. NEURO: No focal deficits. Alert and oriented x3. Cranial nerves 2-12 grossly intact. Normal gait PSYCH: Normal mood and affect Course Course Emergency Course: Patient updated on her workup and agrees with plan of care Vital Signs Vital signs: Vital Signs Temperature 98.6 F 09/10/24 15:07 Pulse Rate 99 09/10/24 15:07 Respiratory Rate 20 09/10/24 15:07 Blood Pressure 154/83 H 09/10/24 15:07 Pulse Oximetry 100 09/10/24 15:07 Temperature 98.6 F 09/10/24 15:07 Pulse Rate 93 09/10/24 20:47 Respiratory Rate 18 09/10/24 20:47 Blood Pressure 153/79 H 09/10/24 20:47 Pulse Oximetry 99 09/10/24 20:47 MDM - Fall MDM Narrative Medical decision making narrative: Patient presents the emergency department after a fall today with head injury. CT brain without acute findings. CT cervical spine without acute osseous abnormalities. Does show left lobe of the thyroid is enlarged. Right shoulder x-ray without acute osseous abnormalities. Patient updated on her workup and agrees with care. She is to follow up with primary provider. She was given warnings to return to the ER Differential Diagnosis Differential diagnosis: Likely compression fracture, concussion without loss of consciousness and other (Muscle strain) Imaging Data Radiologist's impression: ITS Impressions Shoulder X-Ray 09/10/24 18:51 IMPRESSION: No acute osseous abnormality right shoulder. Head CT 09/10/24 18:52 IMPRESSION: No acute intracranial findings. Cervical Spine CT 09/10/24 19:31 IMPRESSION: No acute osseous abnormality cervical spine. Prominent kissing osteophytes seen anteriorly. Left lobe of the thyroid large nodule. Critical Care Time Critical Care Time Critical Care Time: No Discharge Plan Discharge Clinical Impression: Enlarged thyroid Head injury Qualifiers: Encounter type: initial encounter Qualified Code(s): S09.90XA - Unspecified injury of head, initial encounter Patient Disposition: Home, Self-Care Condition: Stable Instructions: Concussion (ED), Thyroid Nodules (ED) Additional Instructions: Return to the ER if you experience persistent vomiting, weakness, numbness, or any other symptoms that are concerning to you Rest, use ice/heat, take anti-inflammatories (Aleve, Ibuprofen, Naproxen, etc) or Tylenol as needed for pain Your imaging was largely reassuring. The radiologist recommends an ultrasound of your thyroid for further evaluation due to it being enlarged Follow up with your primary care doctor Patient Language: Sinhala Prescriptions: No Action doxycycline hyclate 100 mg capsule 100 mg PO Q12H felodipine 5 mg tablet extended release 24 hr 5 mg PO QAM lisinopril 40 mg tablet 40 mg PO .QD tramadol 50 mg tablet 50 mg PO Q8H PRN (Reason: pain) insulin aspart U-100 [Novolog FlexPen U-100 Insulin] 100 unit/mL (3 mL) insulin pen 1 sliding scale dose SUBCUT gabapentin 300 mg Capsule 300 mg PO HS biotin 5,000 mcg Tablet,Disintegrating PO omeprazole 20 mg capsule,delayed release(DR/EC) 20 mg PO DAILY Lantus Solostar U-100 Insulin 100 unit/mL (3 mL) insulin pen 20 unit subcut QPM Qty: 3 0RF Jardiance 10 mg tablet 10 mg PO DAILY Qty: 30 0RF (DME) pen needle, diabetic [BD Ultra-Fine [place] Pen Needle] 32 gauge x 5/32 Needle Qty: 1 0RF Rx Instructions: May substitute to meet patient needs. Use As Directed aspirin 81 mg Tablet,Delayed Release (Dr/Ec) 81 mg PO QAM Qty: 30 3RF magnesium oxide 400 mg (241.3 mg magnesium) Tablet 400 mg PO DAILY Qty: 30 3RF metoprolol succinate 50 mg Tablet Extended Release 24 Hr 50 mg PO QAM Qty: 30 3RF rosuvastatin [Crestor] 10 mg Tablet 20 mg PO DAILY Qty: 30 3RF Follow-up/Referrals: Genie,MD Peter [Primary Care Provider] -
[2024-09-10 20:47] VITALS: BP 153/79; PULSE 93; RESP 18; O2SAT 99
== END 2024-09-10 21:21 | disposition home or self-care (01) ==
LOC: ANHED 21:02
PROVIDERS: Emergency Provider Physician Assistant; PCP Internal Medicine
DX: S09.90XA Unspecified injury of head, initial encounter (principal); W00.0XXA Fall on same level due to ice and snow, initial encounter; E04.9 Nontoxic goiter, unspecified; E11.9 Type 2 diabetes mellitus without complications; E78.49 Other hyperlipidemia; I10 Essential (primary) hypertension; I25.10 Atherosclerotic heart disease of native coronary artery without angina pectoris; Z87.891 Personal history of nicotine dependence
CPT/HCPCS: 70450; 72125; 73030; 99284